=== PATIENT | male | born 1980 | race African-American/Black ===

== ENCOUNTER 2023-11-24 11:52 | Emergency (ER) | payer SELFPAY ==
[2023-11-24 11:56] VITALS: BP 217/153; PULSE 98; RESP 20; TEMP 37; O2SAT 99
[2023-11-24 12:15] VITALS: BP 195/124
--- NOTE | 2023-11-24 12:15 | DI.RAD_ITS ---
Exam(s) XR KNEE LT 3V AP,LAT,FLOYD EXAM: XR KNEE LT 3V AP,LAT,FLOYD CLINICAL HISTORY: Swelling, Pain. TECHNIQUE: 2D digital imaging was performed. COMPARISON: No exams were available for comparison FINDINGS: 3 views There is no evidence of acute fracture. Small amount of increased joint fluid noted. No joint space narrowing. No osseous lesions. No osteochondral defects. Vertical linear lucency noted in the pat angel is probably nutrient artery canal. IMPRESSION: No obvious fractures. Small amount of increased joint fluid noted. DATA REPOSITORY: RADIATION DOSE DELIVERED:
--- NOTE | 2023-11-24 12:24 | W.ED.GENAD ---
Discharge Plan Disposition Patient Disposition: Home Condition: Stable Discharge Details Clinical Impression: Acute gout of left knee Primary Care Provider: Unknown,Unknown ED Provider: Vanessa Jimenez Home Meds and New Rx's Prescriptions: New indomethacin 50 mg capsule 50 mg PO TID 5 Days Qty: 20 0RF Rx Instructions: administer with food or milk take up to 3 times a day for 3-5 days No Action No Known Home Meds Discharge Instructions Instructions: Gout (ED) Additional Instructions: A prescription for the indomethacin was sent to the pharmacy we have on file for you. Please take it 3 times daily for the next 3 to 5 days. Decrease use as tolerated once inflammation decreases. Your uric acid level was elevated indicating that you probably do have gout. Please stay away from high purine foods such as red meats and wine. Follow up with primary care provider in 3-5 days. Return to ED sooner if any worsening or concerns. Your blood pressure was very elevated today. Please discuss this with your primary care provider. Use the crutches and Lucas wrap as instructed for comfort. Stand Alone Forms: Work Release Discharge Data Discharge Date/Time-TO BE ENTERED AT DEPARTURE: 11/24/23 13:39 HPI General Mode of arrival: ambulatory. Date/Time Provider Initiated Documentation: 11/24/23 11:53. Limitations to Documentation: no limitations. Information obtained by: patient, RN notes reviewed and old records reviewed. HPI Narrative: 43 year old male presents to the ER with a chief complaint of left knee pain, warmth and swelling which he noticed a few days ago. He reports he has had a history of gout and this feels similar. He has not taken anything for pain. He does endorse red meats and alcohol. He denies any known injury. Denies any fever or chills. No other associated symptoms or complaints at this time. He is hypertensive upon arrival. Related Data Home Medications Medication Instructions Recorded Confirmed Unknown [No Known Home Meds] 11/24/23 11/24/23 indomethacin 50 mg capsule 50 mg PO TID Gout 5 days #20 caps 11/24/23 Previous Rx's Medication Instructions Recorded indomethacin 50 mg capsule 50 mg PO TID Gout 5 days #20 caps 11/24/23 Allergies Allergy/AdvReac Type Severity Reaction Status Date / Time No Known Allergies Allergy Unverified 11/24/23 12:01 General Stated Complaint: Orthopedic SHAUNNA: 4 Review of Systems All systems reviewed & are unremarkable except as noted in HPI and below Musculoskeletal Musculoskeletal: Reports as per HPI, Reports arthralgias, Reports joint swelling and Reports stiffness Exam Const General: cooperative and healthy appearing Nutritional Appearance: average body habitus Orientation: alert, awake and oriented x3 Resp Effort & Inspection: normal respiratory effort and able to speak in complete sentences Cardio Rate: regular rate Extrem Left lower extremity: knee Details: swelling and warmth; no deformity Course Vital Signs Vital signs: Vital Signs Temperature 37.0 C 11/24/23 11:56 Pulse 98 H 11/24/23 11:56 Respiratory Rate 20 11/24/23 11:56 Blood Pressure 217/153 H 11/24/23 11:56 Pulse Oximetry 99 11/24/23 11:56 Temperature 37.0 C 11/24/23 11:56 Temperature Source Skin 11/24/23 11:56 Pulse 98 H 11/24/23 11:56 Respiratory Rate 20 11/24/23 11:56 Respiratory Effort Normal, Non-Labored 11/24/23 12:01 Blood Pressure 217/153 H 11/24/23 11:56 Blood Pressure Position Sitting 11/24/23 11:56 Pulse Oximetry 99 11/24/23 11:56 Oxygen Delivery Method Room Air 11/24/23 11:56 Oxygen Flow Rate 0 11/24/23 11:56 Pain Level 10 11/24/23 11:56 Medical Decision Making 43 year old male presents to the ER with a chief complaint of left knee pain, warmth and swelling which he noticed a few days ago. He reports he has had a history of gout and this feels similar. He has not taken anything for pain. He does endorse red meats and alcohol. He denies any known injury. Denies any fever or chills. No other associated symptoms or complaints at this time. He is hypertensive upon arrival. No obvious deformity or significant effusion noted. X-ray ordered to rule out underlying injury and uric acid indomethacin 50 mg p.o. ordered. Uric acid is elevated at 8.3. Will apply lucas wrap and crutches and give indomethacin. Discussed labs and home care. This text was generated using [employer] dictation system, please disregard any oddities of phrase or misspellings. Lab Data Lab results reviewed: Yes I reviewed the patient's lab results. Labs: Laboratory Tests Range/Units 11/24/23 12:35 Uric Acid (3.5-7.2) mg/dL 8.3 H Quality:SDOH Health Related Social Needs: No Data to Display PFSH All Active Problems (Updated 11/24/23 @ 13:16 by Vanessa Jimenez NP) Acute gout of left knee (Acute) Social History Smoking/Tobacco Use Status: Never Smoking risk assessment performed?: Yes Alcohol Intake: current Alcohol Intake frequency: 0-2 drinks per day Alcohol type: hard liquor Substance use type: does not use Do you feel safe at home: Yes Do you feel safe in your relationship?: Yes PAWSS Have you Been Recently Intoxicated or Drunk Within the Last 30 days?: Yes Have you Ever Experienced Previous Episodes of Alcohol Withdrawal?: No Have you ever Experienced Withdrawal Seizures?: No Have you ever Experienced Delirium Tremens(DT)s?: No Have you ever undergone Alcohol Rehabilitation Treatment (i.e, inpt ot outpatient treatment programs)?: No Have you ever Experienced Blackouts?: No Have you ever Combined Alcohol with other Downers within the last 90 days?: No Have you ever Combined Alcohol with any other Substance of Abuse during the last 90 days?: No Positive Blood Alcohol level on Presentation? [PCS.BAL]: No Evidence of Increased Autonomic Activity (i.e. HR>120, tremor, sweating, agitation, nausea)?: No Result: 1
[2023-11-24 12:31] VITALS: BP 182/127; PULSE 91; RESP 16; O2SAT 99
[2023-11-24] MEDS: Indomethacin 25 MG CAP 50 MG PO (12:39)
[2023-11-24 12:58] LABS: Uric Acid 8.3 mg/dL (3.5-7.2)
== END 2023-11-24 13:39 | disposition home or self-care (01) ==
LOC: ER 13:47
PROVIDERS: Emergency Provider Registered Nurse Emergency
DX: M10.9 Gout, unspecified (principal)
CPT/HCPCS: 73562; 99284; 84550